=== PATIENT | female | born 1985 | race Caucasian/White ===

== ENCOUNTER 2022-08-11 08:11 | Emergency (ER) | payer OTHER, SELFPAY ==
--- NOTE | ~2022-08-11 | XR_ITS ---
EXAMINATION: XR foot RT min 3V DATE: 08/11/2022 08:27 INDICATION: Inversion injury with lateral right foot pain TECHNIQUE: Dorsoplantar, two oblique and lateral views of the right foot were obtained. COMPARISON: None. FINDINGS: Alignment is normal. No fracture. Joint spaces are normal. 4. Achilles and plantar calcaneal spurs. Soft tissue swelling along the dorsolateral aspect of the ri ght midfoot. IMPRESSION: 1. No acute osseous abnormality. Reviewed, dictated and finalized at location A.
--- NOTE | 2022-08-11 08:19 | ED.LOWEXIN ---
HPI - Extremity Injury (Lower) General Chief Complaint: Extremity Injury, Lower Stated Complaint: Right foot injury Time Seen by Provider: 08/11/22 08:19 Source: patient and RN notes reviewed History of Present Illness HPI Narrative: Patient is a 37-year-old female presents the urgent care with complaints of a right foot injury on Friday. 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 Patient states she is been taking ibuprofen for the pain. Also reports of hearing a pop . No other acute complaints. No acute distress noted. Patient aware of the plan of care. Some parts of this dictation were generated by voice recognition software and may contain typographical and/or grammatical inaccuracies. Related Data Home Medications Medication Instructions Recorded Confirmed No Home Medications 08/11/22 08/11/22 Allergies Allergy/AdvReac Type Severity Reaction Status Date / Time No Known Allergies Allergy Verified 08/11/22 08:23 Review of Systems Review of Systems: CONSTITUTIONAL: Denies fever, chills, or sweats. EYES: Denies visual changes, redness, or discharge. ENT: Denies rhinorrhea, congestion, sore throat, or otalgia. CARDIOVASCULAR: Denies chest pain, palpitations, or edema. RESPIRATORY: Denies cough or dyspnea. GASTROINTESTINAL: Denies abdominal pain, nausea, vomiting, or diarrhea. GENITOURINARY: Denies dysuria or hematuria. SKIN: Denies rash or itching. MUSCULOSKELETAL: Reports of right foot pain NEUROLOGIC: Denies headache, numbness, or weakness. All other systems reviewed are negative, except as documented in HPI. PMFSH Comments At the time of my signature, I reviewed and agree with the nursing past medical, surgical, social, and family history. There is no relevant family history pertinent to the patient complaint. Exam Narrative: GENERAL: This is a well-nourished, well-developed patient, in no apparent distress. HEAD: normocephalic, atraumatic. EYES: PERRL. Sclera clear/white. Vision is grossly intact. EARS: External ears normal NOSE: External nose normal with no obvious nasal discharge, nares without redness, no rhinorrhea. THROAT: Mucous membranes moist NECK: Neck supple SKIN: warm, intact with no suspicious lesions or rash, good texture and turgor. NEURO: awake, alert, and oriented to person, place and time. There were no obvious focal neurologic abnormalities. EXTREMITIES: Course Course Level of Care: Express Care Visit Vital Signs Vital signs: Vital Signs Temperature 99.1 F 08/11/22 08:20 Pulse Rate 98 08/11/22 08:20 Respiratory Rate 16 08/11/22 08:20 Blood Pressure 180/98 H 08/11/22 08:20 Pulse Oximetry 96 08/11/22 08:20 Oxygen Delivery Room Air 08/11/22 08:20 Temperature 99.1 F 08/11/22 08:20 Pulse Rate 98 08/11/22 08:20 Respiratory Rate 16 08/11/22 08:20 Blood Pressure 180/98 H 08/11/22 08:20 Pulse Oximetry 96 08/11/22 08:20 Oxygen Delivery Room Air 08/11/22 08:20 Reviewed-patient is informed that they may have pre-hypertension or hypertension based on a blood pressure reading in the department. I recommend the patient call the primary care provider listed on their discharge instructions or a physician of their choice this week to arrange follow-up for further evaluation of possible pre-hypertension or hypertension. MDM - Extremity Injury (Lower) MDM Narrative Medical decision making narrative: Reviewed x-ray results with the patient. She is aware that x-ray is negative for any fracture or deformity. Advised patient to wear the Adis wrap in a supportive shoe for the next 3 to 5 days or until pain has subsided. Continue to elevate/ice and use Tylenol/ibuprofen as needed for pain or discomfort. Avoid any strenuous activity for the next 3 to 5 days. If you develop any increase in swelling associated with persistent pain, follow-up with the referred orthopedic. Follow-up with your PCP
[2022-08-11 08:20] VITALS: BP 180/98; PULSE 98; RESP 16; TEMP 37.3; O2SAT 96
--- NOTE | 2022-08-11 08:33 | PC.NURSE ---
PT DECLINED ICE FOR COMFORT AND WHEELCHAIR TO RADIOLOGY
== END 2022-08-11 08:40 | disposition home or self-care (01) ==
PROVIDERS: Emergency Provider Nurse Practitioner Family
DX: S93.601D Unspecified sprain of right foot, subsequent encounter (principal); W03.XXXD Other fall on same level due to collision with another person, subsequent encounter
CPT/HCPCS: 73630; 99213; G0463